=== PATIENT | male | born 1970 | race Caucasian/White ===

== ENCOUNTER 2017-10-17 02:43 | Emergency (ER) | payer OTHER ==
--- OUTSIDE RECORDS SUMMARY | 2017-10-17 02:45 | XMS REPORT ---
:1970 Author Organization eClinicalWorks Care Team Providers Name Role Phone Lino Graham Provider Role Unavailable Allergies No Known Allergies Problems No Known Problems Medications No Known Medications Results No Known Results Summary Purpose eClinicalWorks Submission
--- OUTSIDE RECORDS SUMMARY | 2017-10-17 02:45 | XMS REPORT ---
:1970 Author Organization [employer] Care Team Providers Name Role Phone Lino Graham Provider Role Unavailable Allergies, Adverse Reactions, Alerts Substance Reaction Event Type N.K.D.A. 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 Atenolol [facility] 96346974260 50 MG Oral Active TAKE ONE (1) TABLET(S) BY MOUTH ONCE A DAY. Pravastatin [facility] [id number] 40 MG Oral Active TAKE ONE Sodium (1) TABLET(S) BY MOUTH AT BEDTIME. Results No Known Results Summary Purpose eClinicalWorks Submission
[2017-10-17] MEDS ORDERED: HYDROCODONE/APAP 10/325 TAB ONE (03:11)
--- NOTE | 2017-10-17 04:03 | EDPHYS ---
Physician Documentation [facility] Name: Wiliam Contreras Age: 46 yrs Sex: Male : 1970 Arrival Date: 10/17/2017 Time: 02:44 Bed 7 Private MD: Darell Bailon R ED Physician Kristopher French HPI: 10/17 03:59 This 46 yrs old Male presents to ER via Ambulatory with complaints of Wrist gs Pain. 04:00 The patient or guardian reports pain. The complaints affect the left wrist diffusely. gs Onset: The symptoms/episode began/occurred yesterday. Modifying factors: the symptoms are aggravated by movement. Associated signs and symptoms: Pertinent positives: nausea. The patient has experienced similar episodes in the past, a few times. The patient has not recently seen a physician. Historical: - Allergies: 02:58 No Known Allergies; lp1 - Home Meds: 02:58 losartan oral oral [Active]; Atenolol Oral [Active]; lp1 - PMHx: 02:58 Hypertension; Gout; lp1 - PSHx: 02:58 Rotator cuff repair; Hernia repair; Cholecystectomy; Appendectomy; lp1 - Immunization history:: Adult Immunizations up to date. - Social history:: Smoking status: Patient/guardian denies using tobacco. - Ebola Screening: : No symptoms or risks identified at this time. ROS: 04:00 All other systems are negative. gs Exam: 04:00 ENT: Nares patent. No nasal discharge, no septal abnormalities noted. Tympanic gs membranes are normal and external auditory canals are clear. Oropharynx with no redness, swelling, or masses, exudates, or evidence of obstruction, uvula midline. Mucous membranes moist. Cardiovascular: Regular rate and rhythm with a normal S1 and S2. No gallops, murmurs, or rubs. Normal PMI, no JVD. No pulse deficits. Respiratory: Lungs have equal breath sounds bilaterally, clear to auscultation and percussion. No rales, rhonchi or wheezes noted. No increased work of breathing, no retractions or nasal flaring. Abdomen/GI: Soft, non-tender, with normal bowel sounds. No distension or tympany. No guarding or rebound. No evidence of tenderness throughout. Skin: Warm, dry with normal turgor. Normal color with no rashes, no lesions, and no evidence of cellulitis. Neuro: Awake and alert, GCS 15, oriented to person, place, time, and situation. Cranial nerves II-XII grossly intact. Motor strength 5/5 in all extremities. Sensory grossly intact. Cerebellar exam normal. Normal gait. 04:00 Constitutional: The patient appears alert, awake, uncomfortable. 04:00 Musculoskeletal/extremity: ROM: limited active range of motion due to pain, limited passive range of motion due to pain, Circulation is intact in all extremities. Sensation intact. Joints: the left wrist displays pain at rest, painful range of motion, tenderness. Vital Signs: 02:56 BP 127 / 82; Pulse 71; Resp 18; Temp 97.9(O); Pulse Ox 96% on R/A; Weight 127.01 kg; lp1 Height 5 ft. 9 in. (175.26 cm); Pain 9/10; 02:56 Body Mass Index 41.35 (127.01 kg, 175.26 cm) lp1 MDM: 02:59 Patient medically screened. gs 04:00 Differential diagnosis: tendonitis, arthritis. Data reviewed: vital signs, nurses gs notes. Counseling: I had a detailed discussion with the patient and/or guardian regarding: the historical points, exam findings, and any diagnostic results supporting the discharge/admit diagnosis. Response to treatment: the patient's symptoms have markedly improved after treatment, and as a result, I will discharge patient. 08 02:59 Order name: Uric Acid; Complete Time: 03:57 08 02:59 Order name: Wrist Left (3 View) XRAY gs Administered Medications: 03:15 Drug: [place] 10 mg-325 mg 1 tabs Route: PO; lp1 04:14 Follow up: Response: Pain is decreased lp1 Disposition: 10/17/17 04:03 Discharged to Home. Impression: Monoarthritis, not elsewhere classified, left wrist. - Condition is Stable. - Discharge Instructions: Arthritis, Gout. - Prescriptions for Prednisone 20 mg Oral Tablet - take 1 tablet by ORAL route once daily for 5 days; 5 tablet. Tylenol- Codeine #4 300-60 mg Oral Tablet - take 1 tablet by ORAL route every 6 hours As needed; 6 tablet. - Medication Reconciliation Form, Thank You Letter, Antibiotic Education, Prescription Opioid Use form. - Follow up: Private Physician; When: 2 - 3 days; Reason: Re-evaluation by your physician. Signatures: Dispatcher [employer] Luli Tomlinson RN RN lp1 Kristopher French MD MD gs Corrections: (The following items were deleted from the chart) 04:15 04:03 10/17/2017 04:03 Discharged to Home. Impression: Monoarthritis, not elsewhere lp1 classified, left wrist. Condition is Stable. Forms are Medication Reconciliation Form, Thank You Letter, Antibiotic Education, Prescription Opioid Use. Follow up: Private Physician; When: 2 - 3 days; Reason: Re-evaluation by your physician. gs
--- NOTE | 2017-10-17 04:03 | ER ---
Nurse's Notes [facility] Name: Wiliam Contreras Age: 46 yrs Sex: Male : 1970 Arrival Date: 10/17/2017 Time: 02:44 Bed 7 Private MD: Darell Bailon R Diagnosis: Monoarthritis, not elsewhere classified, left wrist Presentation: 10/17 02:54 Presenting complaint: Patient states: Pain to left wrist that began about 1500 lp1 yesterday and worse now, states "it kind of feels like when I've had gout"; Denies any trauma; States pain is making him nauseous. Transition of care: patient was not received from another setting of care. Onset of symptoms was October 16, 2017 at 15:00. Risk Assessment: Do you want to hurt yourself or someone else? Patient reports no desire to harm self or others. Initial Sepsis Screen: Does the patient meet any 2 criteria? No. Patient's initial sepsis screen is negative. Does the patient have a suspected source of infection? No. Patient's initial sepsis screen is negative. Care prior to arrival: None. 02:54 Method Of Arrival: Ambulatory lp1 02:54 Acuity: MULUGETA 4 lp1 Historical: - Allergies: 02:58 No Known Allergies; lp1 - Home Meds: 02:58 losartan oral oral [Active]; Atenolol Oral [Active]; lp1 - PMHx: 02:58 Hypertension; Gout; lp1 - PSHx: 02:58 Rotator cuff repair; Hernia repair; Cholecystectomy; Appendectomy; lp1 - Immunization history:: Adult Immunizations up to date. - Social history:: Smoking status: Patient/guardian denies using tobacco. - Ebola Screening: : No symptoms or risks identified at this time. Screenin:59 Abuse screen: Denies threats or abuse. Denies injuries from another. Nutritional lp1 screening: No deficits noted. Tuberculosis screening: No symptoms or risk factors identified. Fall Risk None identified. Assessment: 02:59 General: Appears uncomfortable, Behavior is appropriate for age. Pain: Complains of lp1 pain in left wrist Pain currently is 9 out of 10 on a pain scale. Quality of pain is described as sharp, Aggravated by repositioning. Neuro: Level of Consciousness is awake, alert, obeys commands. Cardiovascular: Patient's skin is warm and dry. Respiratory: Respiratory effort is even, unlabored. GI: Abdomen is non-distended, Reports nausea. : No signs and/or symptoms were reported regarding the genitourinary system. EENT: No signs and/or symptoms were reported regarding the EENT system. Derm: Skin is pink, warm \\T\\ dry. Skin temperature is warm to left wrist. Musculoskeletal: Range of motion: limited in left wrist. Vital Signs: 02:56 BP 127 / 82; Pulse 71; Resp 18; Temp 97.9(O); Pulse Ox 96% on R/A; Weight 127.01 kg; lp1 Height 5 ft. 9 in. (175.26 cm); Pain 9/10; 02:56 Body Mass Index 41.35 (127.01 kg, 175.26 cm) lp1 ED Course: 02:44 Patient arrived in ED. al2 02:45 Darell Bailon MD is Private Physician. al2 02:53 Luli Dejesus RN is Primary Nurse. lp1 02:56 Triage completed. lp1 02:56 Arm band placed on right wrist. lp1 02:59 Kristopher French MD is Attending Physician. 02:59 Patient has correct armband on for positive identification. lp1 03:22 X-ray completed. Portable x-ray completed in exam room. Patient tolerated procedure kw well. 03:22 Wrist Left (3 View) XRAY In Process Unspecified. EDMS 04:14 No provider procedures requiring assistance completed. Patient did not have IV access lp1 during this emergency room visit. Administered Medications: 03:15 Drug: [place] 10 mg-325 mg 1 tabs Route: PO; lp1 04:14 Follow up: Response: Pain is decreased lp1 Outcome: 04:03 Discharge ordered by . 04:15 Discharged to home ambulatory, with family. lp1 04:15 Condition: good 04:15 Discharge instructions given to patient, Instructed on discharge instructions, follow up and referral plans. medication usage, Demonstrated understanding of instructions, follow-up care, medications, Prescriptions given X 2. 04:15 Patient left the ED. lp1 Signatures: Dispatcher [employer] EDRI Laney Leiva Luli Dejesus, KIKI RN lp1 Kristopher French MD MD gs Love, Angelica al2
[2017-10-17 04:19] VITALS: BP 127/82; TEMP 97.9; O2SAT 96
--- NOTE | 2017-10-17 08:03 | RAD REPORT ---
EXAM DESCRIPTION: RAD - Wrist Left 3 View - 10/17/2017 3:25 am CLINICAL HISTORY: Left wrist pain FINDINGS: No fracture or dislocation is seen. No significant bone or joint abnormality is displayed
== END 2017-10-17 04:15 | disposition home or self-care (01) ==
LOC: ER 02:43
DX: M13.132 Monoarthritis, not elsewhere classified, left wrist (principal); I10 Essential (primary) hypertension
CPT/HCPCS: 36415; 84550; 99283

== ENCOUNTER 2018-12-26 13:55 | Emergency (ER) | payer OTHER, SELFPAY ==
[2018-12-26] MEDS ORDERED: ONDANSETRON 4 MG/2 ML VIAL ONE (14:56)
[2018-12-26] MEDS ORDERED: KETOROLAC 30 MG/ML INJ ONE (14:56)
[2018-12-26] MEDS ORDERED: NA CHLORIDE 0.9% 1,000 ML ONE (14:57)
[2018-12-26] MEDS ORDERED: METRONIDAZOLE 500mg IVPB 500 MG/100 ML BAG IV ONE (14:57)
[2018-12-26] MEDS ORDERED: Levofloxacin500mg IV 500 MG/100 ML BAG IV ONE (14:57)
[2018-12-26 15:31] LABS: Urine Blood NEGATIVE (NEG); Urine Glucose 2+ (NEG); Urine Protein NEGATIVE (NEG); Urine pH 5.5 (5.0-7.0)
[2018-12-26 15:35] LABS: Absolute Lymphocytes (CBC) 1.5 K/uL (0.7-4.9); Basophils % 1.1 % (0-1.3); Hematocrit 38.3 % (39.6-49.0); Lymphocytes % 23.4 % (15.3-44.8); MPV 10.2 fL (7.6-11.3); RBC Red Blood Cell Count 4.21 M/uL (4.33-5.43)
[2018-12-26 15:52] LABS: Urine Bacteria <20 /HPF (NONE SEEN); Urine Culture Reflex Order NOT NEEDED; Urine RBC <5 /HPF (NONE SEEN)
[2018-12-26 16:03] LABS: Albumin 3.6 g/dL (3.4-5.0); Bilirubin Direct 0.2 mg/dL (0-0.2); Bilirubin Total 0.5 mg/dL (0.2-1.0); Potassium 4.1 mmol/L (3.5-5.1); Protein, Total 7.5 g/dL (6.4-8.2)
--- NOTE | 2018-12-26 16:51 | RAD REPORT ---
EXAM DESCRIPTION: CT - Abdomen Pelvis W Contrast - 12/26/2018 4:24 pm CLINICAL HISTORY: Abdominal pain COMPARISON: 2013 TECHNIQUE: Computed axial tomography of the abdomen pelvis was obtained. 100 cc Isovue-300 was admin istered intravenously. Oral contrast was not requested which limits evaluation of bowel. All CT scans are performed using dose optimization technique as appropriate and may include automated exposure control or mA/KV adjustment according to patient size. FINDINGS: Fatty liver. Prominent caudate and left lobe liver The spleen is mildly to moderately enlarged Pancreas, adrenal and kidneys appear unremarkable. There is no evidence of diverticulitis. Bilateral inguinal hernia repair IMPRESSION: Fatty liver. Prominent caudate and left lobe of the liver may indicate chronic disease Mild to moderate splenomegaly
[2018-12-26] MEDS ORDERED: FENTANYL CITR 100 MCG/2 ML ONE (18:13)
--- NOTE | 2018-12-26 18:43 | EDPHYS ---
Physician Documentation [facility] Name: Wiliam Contreras Age: 48 yrs Sex: Male : 1970 Arrival Date: 12/26/2018 Time: 13:57 Bed 19 Private MD: ED Physician Jonnathan Adkins HPI: 12/26 14:56 This 48 yrs old Male presents to ER via Ambulatory with complaints of wa Abdominal Pain. 14:56 The patient presents with abdominal pain in the left lower quadrant. Onset: The wa symptoms/episode began/occurred 4 day(s) ago. The symptoms do not radiate. Associated signs and symptoms: Pertinent positives: chills. nausea, Pertinent negatives: vomiting. The symptoms are described as dull. Modifying factors: The symptoms are alleviated by nothing, the symptoms are aggravated by coughing, movement. Severity of pain: At its worst the pain was moderate in the emergency department the pain is actually worse. The patient has experienced similar episodes in the past, several times, h/o diverticulitis. The patient has been recently seen by a physician: the patient's primary care provider. saw PMD. on levo/flagyl at home but not improving. Historical: - Allergies: 14:07 Augmentin; la1 - PMHx: 14:07 Gout; Hypertension; Diabetes - NIDDM; la1 - Immunization history:: Adult Immunizations up to date. - Social history:: Smoking status: Patient/guardian denies using tobacco. - Ebola Screening: : No symptoms or risks identified at this time. - Family history:: not pertinent. - Hospitalizations: : No recent hospitalization is reported. ROS: 15:01 Eyes: Negative for injury, pain, redness, and discharge, ENT: Negative for injury, wa pain, and discharge, Neck: Negative for injury, pain, and swelling, Cardiovascular: Negative for chest pain, palpitations, and edema, Respiratory: Negative for shortness of breath, cough, wheezing, and pleuritic chest pain, Back: Negative for injury and pain, : Negative for injury, bleeding, discharge, and swelling, MS/Extremity: Negative for injury and deformity, Skin: Negative for injury, rash, and discoloration, Neuro: Negative for headache, weakness, numbness, tingling, and seizure, Psych: Negative for depression, anxiety, suicide ideation, homicidal ideation, and hallucinations. 15:01 Constitutional: Positive for chills, Negative for weight loss. 15:01 Abdomen/GI: Positive for abdominal pain, nausea, of the left lower quadrant. 15:01 All other systems are negative. Exam: 15:02 Constitutional: This is a well developed, well nourished patient who is awake, alert, wa and in no acute distress. Head/Face: Normocephalic, atraumatic. Eyes: Pupils equal round and reactive to light, extra-ocular motions intact. Lids and lashes normal. Conjunctiva and sclera are non-icteric and not injected. Cornea within normal limits. Periorbital areas with no swelling, redness, or edema. ENT: Nares patent. No nasal discharge, no septal abnormalities noted. Tympanic membranes are normal and external auditory canals are clear. Oropharynx with no redness, swelling, or masses, exudates, or evidence of obstruction, uvula midline. Mucous membranes moist. Neck: Trachea midline, no thyromegaly or masses palpated, and no cervical lymphadenopathy. Supple, full range of motion without nuchal rigidity, or vertebral point tenderness. No Meningismus. Chest/axilla: Normal chest wall appearance and motion. Nontender with no deformity. No lesions are appreciated. Cardiovascular: Regular rate and rhythm with a normal S1 and S2. No gallops, murmurs, or rubs. Normal PMI, no JVD. No pulse deficits. Respiratory: Lungs have equal breath sounds bilaterally, clear to auscultation and percussion. No rales, rhonchi or wheezes noted. No increased work of breathing, no retractions or nasal flaring. Back: No spinal tenderness. No costovertebral tenderness. Full range of motion. Skin: Warm, dry with normal turgor. Normal color with no rashes, no lesions, and no evidence of cellulitis. MS/ Extremity: Pulses equal, no cyanosis. Neurovascular intact. Full, normal range of motion. Neuro: Awake and alert, GCS 15, oriented to person, place, time, and situation. Cranial nerves II-XII grossly intact. Motor strength 5/5 in all extremities. Sensory grossly intact. Cerebellar exam normal. Normal gait. Psych: Awake, alert, with orientation to person, place and time. Behavior, mood, and affect are within normal limits. 15:02 Abdomen/GI: Inspection: abdomen appears normal, Bowel sounds: normal, Palpation: moderate abdominal tenderness, in the left lower quadrant. Vital Signs: 14:08 BP 142 / 93; Pulse 85; Resp 16; Temp 98.1; Pulse Ox 100% on R/A; Weight 131.54 kg; la1 Height 5 ft. 9 in. (175.26 cm); 16:00 BP 120 / 68; Pulse 74; Resp 16; Pulse Ox 97% ; bp 17:15 BP 129 / 76; Pulse 77; Resp 16; Pulse Ox 98% ; bp 18:08 BP 116 / 56; Pulse 75; Resp 16; Pulse Ox 98% ; bp 19:09 BP 102 / 54; Pulse 74; Resp 18; Pulse Ox 94% on R/A; wh 14:08 Body Mass Index 42.83 (131.54 kg, 175.26 cm) la1 MDM: 14:14 Patient medically screened. wa 15:02 Differential diagnosis: diverticulitis, sympomatic leaking abdominal aortic aneurysm, wa non-specific abd pain, mesenteric adenitis. Data reviewed: vital signs, nurses notes. 18:35 Test interpretation: by ED physician or midlevel provider: labs noted wnl. CT wa abd/pelvis: no diverticulitis. noted fatty liver and moderately enlarged spleen. Physician consultation:. ED course: reexam: tenderness located in the vicinity of the spleen. reproducible. monospot test sent. pt denies h/o heavy ETOH use. no generalized lymphadenopathy. CBC: cell lines within nml limits. discussed with Dr. Evans (heme/onc.) Advised for pt to f/u with her as out pt for further work up. 18:44 ED course: spoke with pt's PMD. accepted to give referral to f/u with Dr. Koenig. 12/26 14:44 Order name: Basic Metabolic Panel; Complete Time: 16:12/26 14:44 Order name: CBC with Diff; Complete Time: 16:12/26 14:44 Order name: Hepatic Function; Complete Time: 16:12/26 14:44 Order name: Lipase; Complete Time: 16:12/26 14:44 Order name: Urine Microscopic Only; Complete Time: 16:12/26 15:21 Order name: Urine Dipstick--Ancillary (enter results); Complete Time: 16:25 lt1 12/26 14:56 Order name: CT Abd/Pelvis - IV Contrast Only; Complete Time: 16:55 wa 12/26 18:14 Order name: [place] Screen Profile; Complete Time: 19:15 bp 12/26 14:44 Order name: IV Saline Lock; Complete Time: 15:20 wa 12/26 14:44 Order name: Labs collected and sent; Complete Time: 15:20 wa 12/26 14:44 Order name: Urine Dipstick-Ancillary (obtain specimen); Complete Time: 15:20 in Administered Medications: 14:55 Drug: Zofran 4 mg Route: IVP; Site: left antecubital; bp 18:14 Follow up: Response: Nausea is decreased bp 15:00 Drug: TORadol 30 mg Route: IVP; Site: left antecubital; bp 18:14 Follow up: Response: Pain is decreased bp 15:00 Drug: NS 0.9% 1000 ml Route: IV; Rate: 1 bolus; Site: left antecubital; bp 18:49 Follow up: IV Status: Completed infusion; IV Intake: 1000ml bp 15:00 Drug: Flagyl 500 mg Volume: 100 ml; Route: IVPB; Rate: 200 ml/hr; Infused Over: 30 bp mins; Site: left antecubital; 18:50 Follow up: IV Status: Completed infusion; IV Intake: 100ml bp 15:45 Drug: LevaQUIN 500 mg Volume: 100 ml; Route: IVPB; Infused Over: 60 mins; Site: left bp antecubital; 18:50 Follow up: IV Status: Completed infusion; IV Intake: 100ml bp 18:14 Drug: fentaNYL (PF) 100 mcg Route: IVP; Site: left antecubital; bp 18:50 Follow up: Response: Pain is decreased bp Disposition: 12/26/18 18:43 Discharged to Home. Impression: acute left upper quadrant abdominal pain, splenomegaly. - Condition is Stable. - Discharge Instructions: Abdominal Pain, Adult, [id number]. - Prescriptions for Zofran 4 mg Oral Tablet - take 1 tablet by ORAL route every 12 hours As needed; 20 tablet. - Medication Reconciliation Form, Thank You Letter, Antibiotic Education, Prescription Opioid Use form. - Follow up: Laly Colon MD; When: 1 - 2 days; Reason: Recheck today's complaints. - Problem is new. - Symptoms have improved. - Notes: follow up with Dr. Evans for further evaluation of your spleen. do obtain a referral from your primary doctor. Signatures: Dispatcher [employer] EDMS Mono Stearns, RN RN la1 Moraima Bashir Jonnathan Adkins MD MD wa Peltier, Brian RN RN bp Corrections: (The following items were deleted from the chart) 19:21 18:43 12/26/2018 18:43 Discharged to Home. Impression: acute left upper quadrant wh abdominal pain; splenomegaly. Condition is Stable. Forms are Medication Reconciliation Form, Thank You Letter, Antibiotic Education, Prescription Opioid Use. Follow up: Laly Sherman; When: 1 - 2 days; Reason: Recheck today's complaints. Problem is new. Symptoms have improved. [place]
--- NOTE | 2018-12-26 18:43 | ER ---
Nurse's Notes [facility] Name: Wiliam Contreras Age: 48 yrs Sex: Male : 1970 Arrival Date: 12/26/2018 Time: 13:57 Bed 19 Private MD: Diagnosis: acute left upper quadrant abdominal pain;splenomegaly Presentation: 12/26 14:06 Presenting complaint: Patient states: Abd pain in LLQ since , started in cipro la1 flagyl yesterday by PCP. Worsening pain today. Transition of care: patient was not received from another setting of care. Onset of symptoms was December 26, 2018. Risk Assessment: Do you want to hurt yourself or someone else? Patient reports no desire to harm self or others. Initial Sepsis Screen: Does the patient meet any 2 criteria? No. Patient's initial sepsis screen is negative. Does the patient have a suspected source of infection? No. Patient's initial sepsis screen is negative. Care prior to arrival: None. 14:06 Method Of Arrival: Ambulatory la1 14:06 Acuity: MULUGETA 3 la1 Triage Assessment: 14:10 General: Appears in no apparent distress. comfortable, Behavior is cooperative, bp appropriate for age, anxious. Pain: Complains of pain in left lower quadrant. EENT: No deficits noted. Neuro: No deficits noted. Cardiovascular: No deficits noted. Respiratory: No deficits noted. GI: Reports lower abdominal pain. : No signs and/or symptoms were reported regarding the genitourinary system. Derm: No deficits noted. Musculoskeletal: No deficits noted. Historical: - Allergies: 14:07 Augmentin; la1 - PMHx: 14:07 Gout; Hypertension; Diabetes - NIDDM; la1 - Immunization history:: Adult Immunizations up to date. - Social history:: Smoking status: Patient/guardian denies using tobacco. - Ebola Screening: : No symptoms or risks identified at this time. - Family history:: not pertinent. - Hospitalizations: : No recent hospitalization is reported. Screenin:16 Abuse screen: Denies threats or abuse. Denies injuries from another. Nutritional bp screening: No deficits noted. Tuberculosis screening: No symptoms or risk factors identified. Fall Risk None identified. Assessment: 14:15 General: SEE TRIAGE NOTE. bp 16:11 Reassessment: PT TO CT. bp 18:08 Reassessment: ALL CURRENT ORDERS COMPLETED, IVF AND ABX INFUSING. bp 18:50 Reassessment: D/C ON HOLD FOR FINAL LABS AND IVF COMPLETION. bp 19:09 Reassessment: Patient appears in no apparent distress at this time. Patient and/or wh family updated on plan of care and expected duration. Pain level reassessed. Patient is alert, oriented x 3, equal unlabored respirations, skin warm/dry/pink. Dr Lucille MURCIA in room discussing POC. 19:20 GI: Bowel sounds present X 4 quads. Abd is soft and non tender X 4 quads. wh Vital Signs: 14:08 BP 142 / 93; Pulse 85; Resp 16; Temp 98.1; Pulse Ox 100% on R/A; Weight 131.54 kg; la1 Height 5 ft. 9 in. (175.26 cm); 16:00 BP 120 / 68; Pulse 74; Resp 16; Pulse Ox 97% ; bp 17:15 BP 129 / 76; Pulse 77; Resp 16; Pulse Ox 98% ; bp 18:08 BP 116 / 56; Pulse 75; Resp 16; Pulse Ox 98% ; bp 19:09 BP 102 / 54; Pulse 74; Resp 18; Pulse Ox 94% on R/A; wh 14:08 Body Mass Index 42.83 (131.54 kg, 175.26 cm) la1 ED Course: 13:57 Patient arrived in ED. mr 14:07 Triage completed. la1 14:08 Arm band placed on left wrist. la1 14:13 Jonnathan Adkins MD is Attending Physician. wa 14:14 Jesus Coombs, RN is Primary Nurse. bp 14:16 Patient has correct armband on for positive identification. Bed in low position. Call bp light in reach. Side rails up X2. 15:09 Initial lab(s) drawn, by me, sent to lab. Inserted saline lock: 20 gauge in left lt1 antecubital area, using aseptic technique. 15:20 Urine Microscopic Only Sent. lt1 16:24 CT Abd/Pelvis - IV Contrast Only In Process Unspecified. EDMS 18:40 Laly Colon MD is Referral Physician. wa 19:20 No provider procedures requiring assistance completed. IV discontinued, intact, wh bleeding controlled, No redness/swelling at site. Administered Medications: 14:55 Drug: Zofran 4 mg Route: IVP; Site: left antecubital; bp 18:14 Follow up: Response: Nausea is decreased bp 15:00 Drug: TORadol 30 mg Route: IVP; Site: left antecubital; bp 18:14 Follow up: Response: Pain is decreased bp 15:00 Drug: NS 0.9% 1000 ml Route: IV; Rate: 1 bolus; Site: left antecubital; bp 18:49 Follow up: IV Status: Completed infusion; IV Intake: 1000ml bp 15:00 Drug: Flagyl 500 mg Volume: 100 ml; Route: IVPB; Rate: 200 ml/hr; Infused Over: 30 bp mins; Site: left antecubital; 18:50 Follow up: IV Status: Completed infusion; IV Intake: 100ml bp 15:45 Drug: LevaQUIN 500 mg Volume: 100 ml; Route: IVPB; Infused Over: 60 mins; Site: left bp antecubital; 18:50 Follow up: IV Status: Completed infusion; IV Intake: 100ml bp 18:14 Drug: fentaNYL (PF) 100 mcg Route: IVP; Site: left antecubital; bp 18:50 Follow up: Response: Pain is decreased bp Intake: 18:49 IV: 1000ml; Total: 1000ml. bp 18:50 IV: 100ml; Total: 1100ml. bp 18:50 IV: 100ml; Total: 1200ml. bp Outcome: 18:43 Discharge ordered by . co 19:20 Discharged to home ambulatory, with family. 19:20 Condition: good 19:20 Discharge instructions given to patient, family, Instructed on discharge instructions, follow up and referral plans. no drinking with medication, no driving heavy equipment, medication usage, POC ABd Pain Demonstrated understanding of instructions, follow-up care, medications, POC Prescriptions given X 2. 19:21 Patient left the ED. Signatures: Dispatcher [employer] SOFÍADE Lisa Leroy Mono Arrington RN RN Moraima Parks Jonnathan Adkins MD MD wa Peltier, Brian, RN RN bp Tran, Leah lt1
[2018-12-26 20:35] VITALS: TEMP 98.1
[2018-12-26 20:40] VITALS: BP 102/54; O2SAT 94
== END 2018-12-26 19:21 | disposition home or self-care (01) ==
LOC: ER 13:55
DX: R16.1 Splenomegaly, not elsewhere classified (principal); I10 Essential (primary) hypertension; Z88.1 Allergy status to other antibiotic agents
CPT/HCPCS: 36415; 74177; 80048; 80076; 81003; 81015; 83690; 85025; 86308; 96365; 96366; 96375; 99284; J2405; J3010; J7030; Q9967

== ENCOUNTER 2024-06-16 16:04 | Emergency (ER) | payer OTHER ==
--- OUTSIDE RECORDS SUMMARY | 2024-06-16 16:07 | XMS REPORT | Continuity of Care Document ---
Author Name Unknown Address [address] [facility] [address] [place] [address] [facility] [place] Address [address] [facility] [place] [address] Care Team Providers Care School Speech Language Pathologist Name Role Phone Clara Christensen Attending Clinician Unavailable Lor Martin RN Attending Clinician Abiodun garcia Pob1, Acute Care Clinic Attending Clinician Unav ailable Diego Knott Attending Clinician DIEGO KELLY Attending Clinician Unavailable Payers Payer Name Policy Type Policy Number Effective Date Expirati on Date Source Blue Cross and Blue Shield C1 [id number] [facility] Blue Cross and Blue Shield C1 [id number] [facility] Blue Cross and Blue Shield C1 [id number] [facility] Blue Cross and Blue Shield C1 [id number] [facility] Blue Cross and Blue Shield C1 [id number] [facility] Blue Cross and Blue Shield C1 [id number] [facility] Problems Condition Name Condition Details Condition Category Status Onset Date Resolution Date Last Treatment Date Treating Clinician Comments Source [id number] Carpal tunnel syndrome of right wrist Problem [facility] [id number] Carpal tunnel syndrome of left wrist Problem [facility] [id number] Cubital tunnel syndrome on left Problem [facility] [id number] Cubital tunnel syndrome on right Problem [facility] [id number] Chondromal acia of right patella Problem [facility] [id number] Primary osteoarthr itis of right knee Problem [facility] [id number] Arthrosis of left acromiocla vicular joint Problem [facility] No known active problems No known active problems Disease [facility] Allergies, Adverse Reactions, Alerts Allergy Name Allergy Type Status Severity Reaction(s) Onset Date Inactive Date Treating Clinician Comments Source Amoxicil jacob-Pot Clavulan ate Propensi ty to adverse reaction s Active Nausea and/or Vomiting 2018-03 00:00: 00 [facility] AMOXICIL JACOB-POT CLAVULAN ATE DRUG Active N/V 2018-03 00:00: 00 [facility] amoxicil jacob / clavulan ate amoxicil jacob / clavulan ate Active vomiting/alexis rrhea [facility] Social History Social Habit Start Date Stop Date Quantity Comments Source History of Tobacco Use [facility] Sex Assigned At [facility] Smoking Status Start Date Stop Date Source Never Smoker [facility] Medications Ordered Medication Name Filled Medication Name Start Date Stop Date Current Medication? Ordering Clinician Indication Dosage Frequency Signature (SIG) Comments Components Source Bupivicaine [place] Bupivicaine [place] 2019-03 00:00: 00 No 5mg [facility] Kenalog (Triamcinol one) Kenalog (Triamcinol one) 2019-03 0 00:00: 00 No 40mg [facility] Bupivicaine [place] Bupivicaine [place] 2019-03 00:00: 00 No 5mg [facility] Kenalog (Triamcinol one) Kenalog (Triamcinol one) 2019-03 00:00: 00 No 40mg [facility] Bupivicaine [place] Bupivicaine [place] 2019-03 00:00: 00 No 5mg [facility] Kenalog (Triamcinol one) Kenalog (Triamcinol one) 2019-03 00:00: 00 No 40mg [facility] Bupivicaine [place] Bupivicaine [place] 2019-03 00:00: 00 No 5mg [facility] Kenalog (Triamcinol one) Kenalog (Triamcinol one) 2019-03 00:00: 00 No 40mg [facility] Bupivicaine [place] Bupivicaine [place] 2019-03 00:00: 00 No 5mg [facility] Kenalog (Triamcinol one) Kenalog (Triamcinol one) 2019-03 00:00: 00 No 40mg [facility] allopurinol 100 mg tablet 05-29 19:27: 40 05-29 00:00 :00 No 100mg Take 100 mg by mouth daily. [facility] metFORMIN 1,000 mg tablet 05-29 19:27: 40 05-29 00:00 :00 No 1000mg Take 1,000 mg by mouth 2 (two) times daily with meals. [facility] metFORMIN 500 mg tablet 05-15 00:00: 00 Yes 1000mg Take 1,000 mg by mouth 2 (two) times daily. [facility] traMADol 50 mg tablet 2018-03 16:11: 54 Yes 50mg Take 50 mg by mouth 2 (two) times daily. [facility] atenolol 50 mg tablet 2018-03 16:11: 54 Yes 50mg Take 50 mg by mouth daily. [facility] ibuprofen 800 mg tablet 2018-03 16:11: 54 Yes 800mg Take 800 mg by mouth every 12 (twelve) hours as needed. [facility] allopurinol 100 mg tablet 2018-03 16:11: 54 Yes 100mg Take 100 mg by mouth daily. [facility] metFORMIN 1,000 mg tablet 2018-03 16:11: 54 Yes 1000mg Take 1,000 mg by mouth 2 (two) times daily with meals. [facility] Mobic Mobic 04-27 00:00: 00 06-26 00:00 :00 No Lino Graham 1 tablet [facility] Betamethaso ne Sodium Phosphate Betamethaso ne Sodium Phosphate 04-18 00:00: 00 No 1mL [facility] LIDOCAINE HCL 10MG/ML LIDOCAINE HCL 10MG/ML 04-18 00:00: 00 No 10mg [facility] Betamethaso ne Sodium Phosphate Betamethaso ne Sodium Phosphate 04-18 00:00: 00 No 1mL [facility] LIDOCAINE HCL 10MG/ML LIDOCAINE HCL 10MG/ML 04-18 00:00: 00 No 10mg [facility] Betamethaso ne Sodium Phosphate Betamethaso ne Sodium Phosphate 04-18 00:00: 00 No 1mL [facility] LIDOCAINE HCL 10MG/ML LIDOCAINE HCL 10MG/ML 04-18 00:00: 00 No 10mg [facility] Betamethaso ne Sodium Phosphate Betamethaso ne Sodium Phosphate 04-18 00:00: 00 No 1mL [facility] LIDOCAINE HCL 10MG/ML LIDOCAINE HCL 10MG/ML 04-18 00:00: 00 No 10mg [facility] Betamethaso ne Sodium Phosphate Betamethaso ne Sodium Phosphate 04-18 00:00: 00 No 1mL [facility] LIDOCAINE HCL 10MG/ML LIDOCAINE HCL 10MG/ML 04-18 00:00: 00 No 10mg [facility] Hydrochloro thiazide Hydrochloro thiazide No Hydrochlor othiazide Pravastatin Sodium 40 MG Pravastatin Sodium 40 MG No Pravastati n Sodium 40 MG Pravastatin Sodium 40 MG Pravastatin Sodium 40 MG No Pravastati n Sodium 40 MG Ozempic Ozempic No Ozempic Atenolol 25 MG Atenolol 25 MG No 1{table t} QD Atenolol 25 MG Allopurinol 300 MG Allopurinol 300 MG No 1{table t} QD Allopurino l 300 MG Januvia 100 MG Januvia 100 MG No 1{table t} QD Januvia 100 MG fentaNYL 50 MCG/HR fentaNYL 50 MCG/HR No 1{patch _to_ski n} fentaNYL 50 MCG/HR Pantoprazol e Sodium 40 MG Pantoprazol e Sodium 40 MG No 1{table t} QD Pantoprazo le Sodium 40 MG hydroCHLORO thiazide 25 MG hydroCHLORO thiazide 25 MG No 1{table t_in_th e_morni ng} QD hydroCHLOR Othiazide 25 MG Losartan Potassium 50 MG Losartan Potassium 50 MG No Losartan Potassium 50 MG Topiramate 50 MG Topiramate 50 MG No 1{table t} QD Topiramate 50 MG Losartan Potassium 50 MG Losartan Potassium 50 MG No Losartan Potassium 50 MG Pravastatin Sodium 40 MG Pravastatin Sodium 40 MG No Pravastati n Sodium 40 MG Ozempic Ozempic No Ozempic Atenolol 25 MG Atenolol 25 MG No 1{table t} QD Atenolol 25 MG Allopurinol 300 MG Allopurinol 300 MG No 1{table t} QD Allopurino l 300 MG Januvia 100 MG Januvia 100 MG No 1{table t} QD Januvia 100 MG fentaNYL 50 MCG/HR fentaNYL 50 MCG/HR No 1{patch _to_ski n} fentaNYL 50 MCG/HR Pantoprazol e Sodium 40 MG Pantoprazol e Sodium 40 MG No 1{table t} QD Pantoprazo le Sodium 40 MG hydroCHLORO thiazide 25 MG hydroCHLORO thiazide 25 MG No 1{table t_in_th e_morni ng} QD hydroCHLOR Othiazide 25 MG Losartan Potassium 50 MG Losartan Potassium 50 MG No Losartan Potassium 50 MG Topiramate 50 MG Topiramate 50 MG No 1{table t} QD Topiramate 50 MG Losartan Potassium 50 MG Losartan Potassium 50 MG No Losartan Potassium 50 MG Pravastatin Sodium 40 MG Pravastatin Sodium 40 MG No Pravastati n Sodium 40 MG Allopurinol 300 MG Allopurinol 300 MG No 1{table t} QD Allopurino l 300 MG fentaNYL 50 MCG/HR fentaNYL 50 MCG/HR No 1{patch _to_ski n} fentaNYL 50 MCG/HR hydroCHLORO thiazide 25 MG hydroCHLORO thiazide 25 MG No 1{table t_in_th e_morni ng} QD hydroCHLOR Othiazide 25 MG Pantoprazol e Sodium 40 MG Pantoprazol e Sodium 40 MG No 1{table t} QD Pantoprazo le Sodium 40 MG Ozempic Ozempic No Ozempic Topiramate 50 MG Topiramate 50 MG No 1{table t} QD Topiramate 50 MG Januvia 100 MG Januvia 100 MG No 1{table t} QD Januvia 100 MG Atenolol 25 MG Atenolol 25 MG No 1{table t} QD Atenolol 25 MG Losartan Potassium 50 MG Losartan Potassium 50 MG No Losartan Potassium 50 MG Pravastatin Sodium 40 MG Pravastatin Sodium 40 MG No Pravastati n Sodium 40 MG Allopurinol 300 MG Allopurinol 300 MG No 1{table t} QD Allopurino l 300 MG fentaNYL 50 MCG/HR fentaNYL 50 MCG/HR No 1{patch _to_ski n} fentaNYL 50 MCG/HR hydroCHLORO thiazide 25 MG hydroCHLORO thiazide 25 MG No 1{table t_in_th e_morni ng} QD hydroCHLOR Othiazide 25 MG Pantoprazol e Sodium 40 MG Pantoprazol e Sodium 40 MG No 1{table t} QD Pantoprazo le Sodium 40 MG Ozempic Ozempic No Ozempic Topiramate 50 MG Topiramate 50 MG No 1{table t} QD Topiramate 50 MG Januvia 100 MG Januvia 100 MG No 1{table t} QD Januvia 100 MG Atenolol 25 MG Atenolol 25 MG No 1{table t} QD Atenolol 25 MG Pravastatin Sodium 40 MG Pravastatin Sodium 40 MG No Pravastati n Sodium 40 MG Pantoprazol e Sodium Pantoprazol e Sodium No Pantoprazo le Sodium Losartan Potassium 50 MG Losartan Potassium 50 MG No Losartan Potassium 50 MG Vital Signs Vital Name Observation Time Observation Value Comments S ource height 2022-03-25 09:30:00 69 [in_i] Commo n [facility] weight 2022-03-25 09:30:00 221 [lb_av] Comm on [facility] temperature 2022-03-25 09:30:00 97.3 [degF] Com mon [facility] bmi 2022-03-25 09:30:00 32.63 kg/m2 Comm on [facility] blood pressure systolic 2022-03-25 09:30:00 112 mm[Hg] [facility] blood pressure diastolic 2022-03-25 09:30:00 78 mm[Hg] Common [facility] height 2020-01-03 13:30:00 69 [in_i] Commo n [facility] weight 2020-01-03 13:30:00 284 [lb_av] Comm on [facility] bmi 2020-01-03 13:30:00 41.93 kg/m2 Comm on [facility] blood pressure systolic 2020-01-03 13:30:00 126 mm[Hg] [facility] blood pressure diastolic 2020-01-03 13:30:00 72 mm[Hg] [facility] height 2019-12-13 08:30:00 69 [in_i] Commo n [facility] weight 2019-12-13 08:30:00 284 [lb_av] Comm on [facility] bmi 2019-12-13 08:30:00 41.93 kg/m2 Comm on [facility] blood pressure systolic 2019-12-13 08:30:00 120 mm[Hg] [facility] blood pressure diastolic 2019-12-13 08:30:00 80 mm[Hg] [facility] Systolic blood pressure 2019-05-30 19:19:00 120 mm[Hg] [facility] Diastolic blood pressure 2019-05-30 19:19:00 81 mm[Hg] [facility] Heart rate 2019-05-30 19:19:00 94 /min [facility] Body temperature 2019-05-30 19:19:00 37.11 Madisyn [facility] Respiratory rate 2019-05-30 19:19:00 19 /min [facility] Body weight 2019-05-30 19:19:00 122.471 kg [facility] BMI 2019-05-30 19:19:00 39.87 kg/m2 [facility] Oxygen saturation in Arterial blood by Pulse oximetry 2019-05-30 19:19:00 97 /min [facility] Systolic blood pressure 2019-05-30 19:19:00 120 mm[Hg] [facility] Diastolic blood pressure 2019-05-30 19:19:00 81 mm[Hg] [facility] Heart rate 2019-05-30 19:19:00 94 /min [facility] Body temperature 2019-05-30 19:19:00 37.11 Madisyn [facility] Respiratory rate 2019-05-30 19:19:00 19 /min [facility] Body weight 2019-05-30 19:19:00 122.471 kg [facility] BMI 2019-05-30 19:19:00 39.87 kg/m2 [facility] Oxygen saturation in Arterial blood by Pulse oximetry 2019-05-30 19:19:00 97 /min [facility] Procedures Procedure Date / Time Performed Performing Clinicia n Source POCT FLU A AND B (MOLECULAR) 2019-05-30 20:27:00 Diego Kelly [facility] Encounters Start Date/Time End Date/Time Encounter Type Admission Type Attending Clinicians Care Facility Care Department Encounter ID Source 2022-06-07 09:06:00 Outpatient Clara Christensen [facility] [id number] [facility] [place]22-03-25 12:43:00 Outpatient Clara Christensen [facility] [id number] [facility] 2022-03-24 11:03:00 Outpatient [facility] [id number] [facility] 2022-02-15 16:34:00 Outpatient [facility] [id number] [facility] 2021-04-01 11:59:43 Outpatient [facility] [id number] [facility] 2021-04-01 11:52:44 Outpatient [facility] [id number] [facility] 2022-07-19 00:00:00 2022-07-19 00:00:00 (TEL) [facility] [id number] [facility] 2022-06-02 00:00:00 2022-06-02 00:00:00 (TEL) [facility] [id number] [facility] 2022-03-29 00:00:00 2022-03-29 00:00:00 (TEL) [facility] [id number] [facility] 2022-03-25 00:00:00 2022-03-25 00:00:00 OFFICE VISIT ESTAB PT LEVEL 4 [facility] [id number] [facility] 2022-02-09 00:00:00 2022-02-09 00:00:00 (TEL) [facility] [id number] [facility] 2020-01-21 00:00:00 2020-01-21 00:00:00 (TEL) [facility] [id number] [facility] 2020-01-03 00:00:00 2020-01-03 00:00:00 OFFICE VISIT EST PT LEVEL 3 [facility] [id number] [facility] 2019-12-26 00:00:00 2019-12-26 00:00:00 (TEL) [facility] [id number] [facility] 2019-12-22 00:00:00 2019-12-22 00:00:00 (TEL) [facility] [id number] [facility] 2019-12-14 00:00:00 2019-12-14 00:00:00 (TEL) [facility] [id number] [facility] 2019-12-13 00:00:00 2019-12-13 00:00:00 OFFICE VISIT ESTAB PT LEVEL 4 [facility] [id number] [facility] 2019-06-02 00:00:00 2019-06-02 00:00:00 Telephone [facility] [id number] [facility] 2019-06-02 00:00:00 2019-06-02 00:00:00 Telephone [facility] [id number] 2019-05-30 13:56:08 2019-05-30 14:42:38 Urgent Care Pob1, Acute Care Clinic Diego Kelly [facility] [id number] [facility] 2019-05-30 13:56:08 2019-05-30 14:42:38 Urgent Care Pob1, Acute Care Clinic [facility] [id number] 2019-05-30 14:00:00 2019-05-30 14:00:00 Outpatient R DIEGO KELLY [facility] [id number] [facility] 2019-05-30 00:00:00 2019-05-30 00:00:00 Telephone Pob1, Acute Care Clinic [facility] [id number] [facility] 2019-05-30 00:00:00 2019-05-30 00:00:00 Telephone Pob1, Acute Care Clinic [facility] [id number] 2018-04-27 14:02:00 2018-04-27 14:02:00 Outpatient [facility] [id number] [facility] 2017-10-14 08:48:00 2017-10-14 08:48:00 Outpatient [facility] [id number] [facility] 2017-10-14 08:47:00 2017-10-14 08:47:00 Outpatient [facility] [id number] [facility] 2017-10-06 08:00:00 2017-10-06 08:00:00 Outpatient [facility] [id number] [facility] Results Test Description Test Time Test Comments Results Result Co mments Source [facility]
[2024-06-16] MEDS ORDERED: FLUORESCEIN SODIUM 1 MG/WRAP ONE (16:32)
[2024-06-16] MEDS ORDERED: TETRACAINE HCL 0.5% 4ML OPTH ONE (16:32)
--- NOTE | 2024-06-16 17:05 | RAD REPORT ---
EXAMINATION: CT MAXILLOFACIAL WITHOUT CONTRAST CLINICAL INDICATION: Facial trauma. Facial pain. TECHNIQUE: Axial images were obtained through the facial bones and orbits without intravenous contras t. Sagittal and coronal reconstructions were created from the data. One or more of the following dose reduction techniques were used: Automated exposure control, adjustment of the mA and/or kV accor ding to patient size, and/or iterative reconstruction. Unless otherwise specified, incidental findings do not require dedicated imaging follow-up. COMPARISON: No prior exam. FINDINGS: No fracture seen. No TMJ dislocation The globes are normal size and density. No fluid within the sinuses IMPRESSION: A fracture is not visualized
--- NOTE | 2024-06-16 17:05 | RAD REPORT ---
EXAM: CT brain without contrast HISTORY: Head pain status post trauma. COMPARISON: None TECHNIQUE: Multiple contiguous axial images were obtained and a CT of the brain without contrast.. Sagittal and coronal reconstruction performed. Automated exposure control, adjustment of the mA and/or kV according to patient size, and/or iterative reconstruction. Unless otherwise specified, incidental f indings do not require dedicated imaging follow-up FINDINGS: An intracranial bleed is not seen Ventricles are normal caliber No extra-axial fluid collection noted No significant hypodensity within the brain No fluid within the visualized sinuses or mastoids noted. IMPRESSION: No acute intracranial abnormality noted. If the patient continues to have symptoms to suggest an acute intracranial abnormality then MRI of th e brain would be recommended.
[2024-06-16] MEDS ORDERED: LIDOCAINE 1% MPF 5 ML VIAL ONE (17:40)
[2024-06-16] MEDS ORDERED: ACETAMINOPHEN 500 MG TAB ONE (17:43)
[2024-06-16] MEDS ORDERED: IBUPROFEN 400 MG TAB ONE (18:10)
--- NOTE | 2024-06-16 18:10 | ER ---
Nurse's Notes [facility] Name: Wiliam Contreras Age: 53 yrs Sex: Male : 1970 Arrival Date: 06/16/2024 Time: 16:04 Bed 10 Private MD: Diagnosis: Laceration without foreign body of right eyelid and periocular area, initial encounter;Contusion of unspecified part of head, initial encounter Presentation: 06/16 16:11 Chief complaint: Patient states: got hit in right eye with baseball. pt states that he cm10 was wearing sunglasses at the time and the sunglasses shattered. pt was seen at urgent care and had laceration irrigated and sent here for head ct. No LOC. Coronavirus screen: Client denies travel out of the [place] in the last 14 days. Ebola Screen: Patient denies travel to an Ebola-affected area in the 21 days before illness onset. Mechanism of Injury: resulted from playing sports, baseball. Initial Sepsis Screen: Does the patient meet any 2 criteria? Yes Does the patient have a suspected source of infection? No. Patient's initial sepsis screen is negative. Risk Assessment: Do you want to hurt yourself or someone else? Patient reports no desire to harm self or others. Onset of symptoms was June 16, 2024. 16:11 Method Of Arrival: Ambulatory cm10 16:11 Acuity: MULUGETA 3 cm10 Triage Assessment: 16:13 General: Appears in no apparent distress. comfortable, Behavior is calm, cooperative. cm10 Neuro: No deficits noted. Level of Consciousness is awake, alert, obeys commands, Oriented to person, place, time, situation, Appropriate for age Account Assistant are equal bilaterally Moves all extremities. Gait is steady, Speech is normal. Respiratory: No deficits noted. Airway is patent Respiratory effort is even, unlabored, Respiratory pattern is regular, symmetrical. 18:23 Neuro: Reports headache. me1 Historical: - Allergies: 16:13 Augmentin; cm10 - PMHx: 16:13 Diabetes - NIDDM; Gout; Hypertension; cm10 - Immunization history:: Adult Immunizations up to date. - Infectious Disease History:: Denies. - Social history:: Smoking status: Patient denies any tobacco usage or history of. Screenin:15 [place] [facility] Fall Risk Assessment (Adult) History of falling in the last 3 months, me1 including since admission No falls in past 3 months (0 pts) Confusion or Disorientation No (0 pts) Intoxicated or Sedated No (0 pts) Impaired Gait No (0 pts) Mobility Assist Device Used No (0 pt) Altered Elimination No (0 pt) Score/Fall Risk Level 0 - 2 = Low Risk Maintained a safe environment, Provided non-skid footwear, Hourly rounding (assess needs \T\ fall precautionary measures) done. Abuse screen: Denies threats or abuse. Nutritional screening: No deficits noted. Tuberculosis screening: No symptoms or risk factors identified. Assessment: 16:15 General: Appears in no apparent distress. well groomed, well developed, well nourished, me1 Behavior is calm, cooperative, appropriate for age, Reports got hit in right eye with baseball. pt states that he was wearing sunglasses at the time and the sunglasses shattered. pt was seen at urgent care and had laceration irrigated and sent here for head ct. No LOC. Pain: Complains of pain in right eye Pain does not radiate. Pain currently is 3 out of 10 on a pain scale. Quality of pain is described as aching, Pain began suddenly, Is continuous. Neuro: Level of Consciousness is awake, alert, obeys commands, Oriented to person, place, time, situation, Appropriate for age. Cardiovascular: Patient's skin is warm and dry. Respiratory: Airway is patent Respiratory effort is even, unlabored, Respiratory pattern is regular, symmetrical. GI: No signs and/or symptoms were reported involving the gastrointestinal system. : No signs and/or symptoms were reported regarding the genitourinary system. EENT: Eyes laceration above right eye. Derm: Wound noted right eye Wound is laceration above right eye. Musculoskeletal: No signs and/or symptoms reported regarding the musculoskeletal system. Injury Description: got hit in right eye with baseball. pt states that he was wearing sunglasses at the time and the sunglasses shattered. pt was seen at urgent care and had laceration irrigated and sent here for head ct. No LOC. Vital Signs: 16:11 BP 109 / 71; Pulse 72; Resp 15; Temp 97.8; Pulse Ox 99% on R/A; Weight 102.06 kg; cm10 Height 5 ft. 9 in. ; Pain 3/10; 18:22 BP 112 / 68; Pulse 76; Resp 14; Temp 98.1; Pulse Ox 100% ; me1 16:11 Body Mass Index 33.23 (102.06 kg, 175.26 cm) cm10 16:11 Pain Scale: Adult cm10 Visual Acuity: 17:47 Left Eye Visual acuity 20/35, Pupil size 3 mm, Normal, Reactive To Accomodation; Right me1 Eye Visual acuity 20/35, Pupil size 3 mm, Normal, Reactive To Accomodation; Both Eyes Visual acuity 20/35; Without Lenses; does not have his glasses with him. Reports this is his normal. Eckerty Coma Score: 16:11 Eye Response: spontaneous(4). Motor Response: obeys commands(6). Verbal Response: cm10 oriented(5). Total: 15. 16:15 Eye Response: spontaneous(4). Motor Response: obeys commands(6). Verbal Response: cp oriented(5). Total: 15. ED Course: 16:06 Patient arrived in ED. im 16:07 Blake Floyd PA is PHCP. cp 16:07 Jong Dorsey MD is Attending Physician. cp 16:13 Triage completed. cm10 16:14 Catarina Adam, RN is Primary Nurse. me1 16:14 Arm band placed on right wrist. Patient placed in an exam room. cm10 16:15 Patient has correct armband on for positive identification. Bed in low position. Call me1 light in reach. Side rails up X 1. Provided Education on: POC. Verbalized understanding.. 16:15 No provider procedures requiring assistance completed. me1 16:43 CT Head Brain wo Cont In Process Unspecified. EDMS 16:43 CT Facial Bones W/O Con In Process Unspecified. EDMS 18:09 Yayo Balbuena MD is Referral Physician. cp 18:23 Patient did not have IV access during this emergency room visit. me1 Administered Medications: 17:47 Drug: Acetaminophen PO 1000 mg PO once Route: PO; me1 18:15 Follow up: Response: No adverse reaction; Pain is decreased me1 17:53 Drug: Lidocaine Infiltration (1 %) 5 ml 5 ml Infiltration once; to bedside {Note: To be me1 administered by NAT Benson.} Volume: 5 ml; Route: Infiltration; 18:22 Follow up: Response: No adverse reaction; Pain is decreased me1 17:54 Drug: Tetracaine Ophthalmic Drops 0.5 % 1 drops Ophthalmic once Route: Ophthalmic; me1 Site: right eye; 18:22 Follow up: Response: No adverse reaction me1 18:17 Drug: Ibuprofen PO 800 mg PO once Route: PO; me1 18:22 Follow up: Response: No adverse reaction; Pain is decreased me1 Medication: 16:15 VIS not applicable for this client. me1 Outcome: 18:10 Discharge ordered by . azalea 18:23 Discharged to home ambulatory, with family, me1 18:23 Condition: stable 18:23 Discharge instructions given to patient, Instructed on discharge instructions, follow up and referral plans. medication usage, wound care, Demonstrated understanding of instructions, follow-up care, medications, wound care, Prescriptions given X 2, 18:23 Patient left the ED. me1 Signatures: Dispatcher [employer] EDMS Blake Floyd PA PA cp Mendoza, Itzel im Martinez, Clarissa, RN RN cm10 Catarina Adam RN RN me1 Corrections: (The following items were deleted from the chart) 16:15 16:11 Chief complaint: Patient states: got hit in right eye with baseball. pt states me1 that he was wearing sunglasses at the time and the sunglasses shattered. pt was seen at urgent care and had laceration irrigated and sent here for head ct. No LOC. cm10
--- NOTE | 2024-06-16 18:10 | EDPHYS ---
Physician Documentation [facility] Name: Wiliam Contreras Age: 53 yrs Sex: Male : 1970 Arrival Date: 06/16/2024 Time: 16:04 Bed 10 Private MD: ED Physician Jong Dorsey HPI: 06/16 16:15 This 53 yrs old Male presents to ER via Ambulatory with complaints of Head Injury-Adult.cp 16:15 The patient or guardian reports injury, a laceration, swelling, tenderness. The cp complaints affect the right eye orbit. Context of injury: resulted from a direct blow, struck baseball. 16:15 Onset: The symptoms/episode began/occurred just prior to arrival. Associated signs and cp symptoms: Loss of consciousness: This patient did not experience any loss of consciousness. Pertinent positives: headache, Pertinent negatives: neck pain, vomiting. Historical: - Allergies: 16:13 Augmentin; cm10 - PMHx: 16:13 Diabetes - NIDDM; Gout; Hypertension; cm10 - Immunization history:: Adult Immunizations up to date. - Infectious Disease History:: Denies. - Social history:: Smoking status: Patient denies any tobacco usage or history of. ROS: 16:20 Neuro: Positive for headache, Negative for altered mental status, cp 16:20 Constitutional: Negative for body aches, chills, fever, poor PO intake, cp 16:20 Eyes: Negative for vision loss, cp 16:20 Cardiovascular: Negative for chest pain, edema, palpitations, 16:20 Respiratory: Negative for cough, shortness of breath, wheezing, 16:20 Abdomen/GI: Negative for abdominal pain, vomiting, diarrhea, constipation, 16:20 All other systems are negative, Exam: 16:25 Constitutional: The patient appears in no acute distress, alert, awake, non-toxic, well cp developed, well nourished, 16:25 Head/face: Noted is contusion, of the right orbital area, ecchymosis, that is mild, cp swelling, that is mild, superficial laceration right supraorbital ridge. 16:25 Eyes: Pupils: equal, round, and reactive to light and accomodation, Extraocular movements: intact throughout, Conjunctiva: normal, no exudate, no injection, Lids and lashes: laceration, of the right upper lid, 16:25 ENT: External ear(s): are unremarkable, Nose: External nose: mild right side tenderness, Nasal septum: is midline, Mouth: Lips: moist, Oral mucosa: moist, Posterior pharynx: Airway: no evidence of obstruction, patent, 16:25 Neck: C-spine: vertebral tenderness, is not appreciated, crepitus, is not appreciated, ROM/movement: is normal, is supple, without pain, no range of motions limitations, 16:25 Chest/axilla: Inspection: normal, Palpation: is normal, no crepitus, no tenderness, 16:25 Cardiovascular: Rate: normal, Rhythm: regular, 16:25 Respiratory: the patient does not display signs of respiratory distress, Respirations: normal, no use of accessory muscles, no retractions, labored breathing, is not present, Breath sounds: are clear throughout, no decreased breath sounds, no stridor, no wheezing, 16:25 Abdomen/GI: Inspection: abdomen appears normal, Palpation: abdomen is soft and non-tender, in all quadrants, Vital Signs: 16:11 BP 109 / 71; Pulse 72; Resp 15; Temp 97.8; Pulse Ox 99% on R/A; Weight 102.06 kg; cm10 Height 5 ft. 9 in. ; Pain 3/10; 18:22 BP 112 / 68; Pulse 76; Resp 14; Temp 98.1; Pulse Ox 100% ; me1 16:11 Body Mass Index 33.23 (102.06 kg, 175.26 cm) cm10 16:11 Pain Scale: Adult cm10 Lang Coma Score: 16:11 Eye Response: spontaneous(4). Motor Response: obeys commands(6). Verbal Response: cm10 oriented(5). Total: 15. 16:15 Eye Response: spontaneous(4). Motor Response: obeys commands(6). Verbal Response: cp oriented(5). Total: 15. Visual Acuity: 17:47 Left Eye Visual acuity 20/35, Pupil size 3 mm, Normal, Reactive To Accomodation; Right me1 Eye Visual acuity 20/35, Pupil size 3 mm, Normal, Reactive To Accomodation; Both Eyes Visual acuity 20/35; Without Lenses; does not have his glasses with him. Reports this is his normal. Laceration: 18:05 Wound Repair of 1.5cm ( 0.6in ) subcutaneous laceration to outer right upper eyelid. cp Linear shaped.. Distal neuro/vascular/tendon intact. Anesthesia: Local anesthetic administered with 2 mls of 1% lidocaine. Wound prep: Simple cleansing by me. Skin closed with 3 5-0 Vicryl using interrupted sutures and sterile technique. Patient tolerated well. MDM: 16:15 Medical Screening Exam initiated cp 18:10 Data reviewed: vital signs, nurses notes, radiologic studies, CT scan, and as a result, I will discharge patient. 18:10 Differential diagnosis: Contusion of Hematoma on Laceration of Intracranial bleed- cp Concussion cerebral contusion. I considered the following discharge prescriptions or medication management in the emergency department Medications were administered in the Emergency Department. See MAR. Care significantly affected by the following chronic conditions: Diabetes, Hypertension. Counseling: I had a detailed discussion with the patient and/or guardian regarding the historical points, exam findings, and any diagnostic results supporting the discharge/admit diagnosis, radiology results, the need for outpatient follow up, an opthalmologist, to return to the emergency department if symptoms worsen or persist or if there are any questions or concerns that arise at home. Response to treatment: the patient's symptoms have markedly improved after treatment, and as a result, I will discharge patient. 06/16 16:13 Order name: CT Head Brain wo Cont; Complete Time: 17:07 cp 06/16 17:08 Interpretation: Report reviewed. 06/16 16:13 Order name: CT Facial Bones W/O Con; Complete Time: 17:07 cp 06/16 17:08 Interpretation: Report reviewed. 06/16 16:18 Order name: Eye Tray; Complete Time: 16:39 cp 06/16 16:18 Order name: Fluoresene Opth strip; Complete Time: 16:38 cp 06/16 16:18 Order name: Visual Acuity; Complete Time: 17:47 cp 06/16 17:19 Order name: Dressing - Wound; Complete Time: 17:54 cp 06/16 17:19 Order name: Gloves, Sterile; Complete Time: 17:54 cp 06/16 17:19 Order name: Setup Suture Tray; Complete Time: 17:54 cp Administered Medications: 17:47 Drug: Acetaminophen PO 1000 mg PO once Route: PO; wa1 18:15 Follow up: Response: No adverse reaction; Pain is decreased me1 17:53 Drug: Lidocaine Infiltration (1 %) 5 ml 5 ml Infiltration once; to bedside {Note: To be me1 administered by NAT Benson.} Volume: 5 ml; Route: Infiltration; 18:22 Follow up: Response: No adverse reaction; Pain is decreased me1 17:54 Drug: Tetracaine Ophthalmic Drops 0.5 % 1 drops Ophthalmic once Route: Ophthalmic; me1 Site: right eye; 18:22 Follow up: Response: No adverse reaction me1 18:17 Drug: Ibuprofen PO 800 mg PO once Route: PO; me1 18:22 Follow up: Response: No adverse reaction; Pain is decreased me1 Disposition: 20:24 Co-signature as Attending Physician, Jong Dorsey MD I reviewed the patient's care rt provided by the Advanced Practice Provider and agree with the diagnosis and treatment plan. 06/17 17:59 Chart complete. cp Disposition Summary: 06/16/24 18:10 Discharge Ordered Notes: Location: Home cp Problem: new cp Symptoms: have improved cp Condition: Stable cp Diagnosis - Laceration without foreign body of right eyelid and periocular area, initial cp encounter - Contusion of unspecified part of head, initial encounter cp Followup: cp - With: Yayo Balbuena MD - When: 2 - 3 days - Reason: Recheck today's complaints Discharge Instructions: - Discharge Summary Sheet cp - Facial or Scalp Contusion cp - Head Injury, Adult cp - Facial Laceration cp Forms: - Medication Reconciliation Form cp - Antibiotic Education cp - Prescription Opioid Use cp - Patient Portal Instructions cp - Leadership Thank You Letter cp Prescriptions: - Cephalexin 500 mg Oral Capsule - take 1 capsule ORAL route every 8 hours for 10 days; 30 capsule; Refills: 0, cp Product Selection Permitted - Ibuprofen 800 mg Oral Tablet - take 1 tablet ORAL route every 8 hours As needed take with food; 30 tablet; cp Refills: 0, Product Selection Permitted Signatures: Dispatcher [employer] EDAK Blake Floyd PA PA cp [place], Ryan, MD MD rt Saloni Freeman RN RN cm10 Catarina Adam RN RN me1 Corrections: (The following items were deleted from the chart) 06/16 18:08 16:15 Associated signs and symptoms: Loss of consciousness: This patient did not cp experience any loss of consciousness. cp
[2024-06-16 18:49] VITALS: BP 112/68; TEMP 98.1; O2SAT 100
== END 2024-06-16 18:23 | disposition home or self-care (01) ==
LOC: ER 16:04
DX: S01.111A Laceration without foreign body of right eyelid and periocular area, initial encounter (principal); W21.03XA Struck by baseball, initial encounter
CPT/HCPCS: 70450; 70486; 76377; 99283; 12011; J2003